=== PATIENT | male | born 1980 | race Caucasian/White ===

== ENCOUNTER 2025-02-08 05:52 | Day surgery (SDC) | payer BC, SELFPAY ==
[2025-02-08] VITALS (9 sets, daily range): BP systolic 123–160; BP diastolic 74–104; BMI 23.2
[2025-02-08] MEDS: TYLENOL 1000 MG PO (06:38)
[2025-02-08] MEDS: EMEND 40 MG PO (06:54)
[2025-02-08] MEDS: NORMOSOL-R/PLASMALYTE-A 1000 IV (07:10)
== END 2025-02-08 10:39 | disposition home or self-care (01) ==
LOC: SDS 05:52
PROVIDERS: ATTENDING PHYSICIAN Surgery
DX: K40.90 Unilateral inguinal hernia, without obstruction or gangrene, not specified as recurrent (principal)
CPT/HCPCS: 49650; C1781